=== PATIENT | male | born 1950 | race Caucasian/White ===

== ENCOUNTER 2016-04-14 01:59 | Observation (INO) | payer OTHER ==
[~2016-04-14] VITALS: Ht 177.8 cm; Wt 102.5 kg
[~2016-04-14 01:59] MED LIST: ADULT LOW DOSE81 M1 PO; ADVAIR HFA120 INHALA IH; ALBUTEROL SULF8.5 GM IH; ALKA-SELTZER O1 EACH PO; ALTACE10 MG PO; ALTACE5 MG PO; ASPIRIN EC325 MG PO; ASPIRIN81 M1 PO; ASPIRIN81 M2 PO; ATORVASTATIN CA10 MG PO; ATORVASTATIN CA40 MG PO; AVAPRO150 MG PO; AVAPRO300 MG PO; Aspirin E.C. PO; COLACE100 MG PO; ENALAPRIL MALEA20 MG PO; FUROSEMIDE40 MG PO; GLUCOPHAGE500 MG PO; HYDROCHLOROTHIA25 MG PO; HYDROCODON-ACE1 EAC7 PO; IRBESARTAN300 MG PO; LIPITOR10 MG PO; LIPITOR40 MG PO; LISINOPRIL5 MG PO; LO-DOSE ASPIRIN81 M2 PO; LOPRESSOR12.5 MG PO; Levaquin PO; METFORMIN HCL1000 MG PO; METFORMIN HCL500 MG PO; METOPROLOL TART50 MG PO; MILK OF MAGN PO; MONTELUKAST SOD10 MG PO; PLAVIX75 MG PO; PROTONIX40 MG PO; RAMIPRIL10 MG PO; RANITIDINE HCL150 M1 PO; SPIRONOLACTONE25 MG PO; TOPROL XL25 MG PO; TOPROL XL50 MG PO; VENTOLIN HFA18 GM IH; XANAX0.5 MG PO; ZANTAC300 MG PO; [UNRECOGNIZED DRUG - OTHER] PO
[2016-04-14 02:21] LABS: HEMATOCRIT 38.7 % (38.0-50.0); MCH 33.3 PG (29.0-34.0); MCHC 36.2 G/DL (30.0-36.0); MCV 91.9 FL (86-99); MEAN PLAT.VOLUME 9.1 uM^3 (9.0-12.4); PLATELET COUNT 364 K/uL (156-360); RBC DIS.WIDTH-CV 12.8 % (11.8-14.6); RBC DIS.WIDTH-SD 40.9 % (39-53); RED BLOOD COUNT 4.21 M/uL (4.00-5.50); WHITE BLOOD COUNT 11.4 K/uL (4.1-10.2)
[2016-04-14 02:29] LABS: CHLORIDE 105 mEq/L (99-109); SODIUM 137 mEq/L (136-147)
[2016-04-14 02:31] LABS: GLUCOSE 159 mg/dL (70-99)
[2016-04-14 02:32] LABS: ANION GAP 12 MEQ/L (2-14)
[2016-04-14 02:35] LABS: GFR ESTIMATE (CALCULATED) > 59 mL/min/
[2016-04-14 02:36] LABS: UREA NITROGEN (BUN) 13 mg/dL (9-23)
[2016-04-14 02:41] LABS: TROP-I INTERPRETATION NEGATIVE; TROPONIN-I 0.02 ng/mL (0.0-0.30)
[2016-04-14 07:31] VITALS: BP 104/78
[2016-04-14 08:00] VITALS: BP 111/65
[2016-04-14 09:10] LABS: Estimated Average Glucose 146 mg/dL (70-123); HEMOGLOBIN A1c (GLYCOHEMOGLOB) 6.7 % HGB (Below 5.7)
[2016-04-14 09:25] LABS: ALKALINE PHOSPHATASE 86 IU/L (3-129); ANION GAP 8 MEQ/L (2-14); CHLORIDE 103 MEQ/L (99-109); GFR ESTIMATE (CALCULATED) > 59 mL/min/; GLUCOSE 122 mg/dL (70-99); POTASSIUM 4.2 MEQ/L (3.7-5.4); SAMPLE HEMOLYSIS CHECK 0; SAMPLE ICTERIC CHECK 0; SAMPLE LIPEMIA CHECK 0; SODIUM 139 MEQ/L (136-147); TOTAL BILIRUBIN 0.6 MG/DL (0.0-1.0); UREA NITROGEN (BUN) 12 mg/dL (9-23)
[2016-04-14 09:34] LABS: TROP-I INTERPRETATION NEGATIVE; TROPONIN-I 0.02 ng/mL (0.0-0.30)
[2016-04-14 09:35] LABS: HEMATOCRIT 39.7 % (38.0-50.0); MCH 31.2 PG (29.0-34.0); MCV 91.7 FL (86-99); PLATELET COUNT 327 K/uL (156-360); RBC DIS.WIDTH-CV 13.1 % (11.8-14.6); RBC DIS.WIDTH-SD 43.2 % (39-53); RED BLOOD COUNT 4.33 M/uL (4.00-5.50)
[2016-04-14] MEDS ORDERED: AUGMENTIN875 MG PO (11:30)
[2016-04-14] MEDS ORDERED: TESSALON200 MG PO (11:30)
[2016-04-14] MEDS ORDERED: XANAX0.5 MG PO (11:31)
[2016-04-14] MEDS ORDERED: SINGULAIR10 MG PO (11:31)
[2016-04-14] MEDS ORDERED: ADVAIR HFA120 INHALA IH (11:31)
[2016-04-14 12:12] VITALS: BP 125/76
[2016-04-14] MEDS ORDERED: NITROSTAT0.4 MG SL (14:45)
[2016-04-14] MEDS ORDERED: NICOTINE PATCH1 EAC2 TD (14:45)
[2016-04-14 14:57] VITALS: BP 110/65
[2016-04-14 15:14] LABS: TROP-I INTERPRETATION NEGATIVE; TROPONIN-I 0.01 ng/mL (0.0-0.30)
[2016-04-14 16:18] LABS: POINT-OF-CARE METER ID UU14162513
== END 2016-04-14 17:53 | disposition home or self-care (01) ==
LOC: EME → EDBD 01:59 → EDOF 03:05 → 5WEST 07:02
PROVIDERS: Hospitalist; Internal Medicine
DX: R07.89 Other chest pain (principal); I10 Essential (primary) hypertension; E11.9 Type 2 diabetes mellitus without complications; I25.10 Atherosclerotic heart disease of native coronary artery without angina pectoris; Z86.73 Personal history of transient ischemic attack (TIA), and cerebral infarction without residual deficits; E78.5 Hyperlipidemia, unspecified; I48.0 Paroxysmal atrial fibrillation; F17.220 Nicotine dependence, chewing tobacco, uncomplicated; E66.9 Obesity, unspecified; Z68.32 Body mass index [BMI] 32.0-32.9, adult; Z79.02 Long term (current) use of antithrombotics/antiplatelets; Z79.82 Long term (current) use of aspirin; Z79.84 Long term (current) use of oral hypoglycemic drugs
CPT/HCPCS: 71020; 80048; 80053; 82948; 83036; 84484; 85027; 93005; 99281; 99285; G0378; J1644; J1815

== ENCOUNTER 2017-02-14 01:01 | Emergency (ER) | payer OTHER ==
[~2017-02-14] VITALS: Ht 180.3 cm; Wt 111.0 kg
[~2017-02-14 01:01] MED LIST changes: +AUGMENTIN875 MG PO; +NICOTINE PATCH1 EAC2 TD; +NITROSTAT0.4 MG SL; +SINGULAIR10 MG PO; +TESSALON200 MG PO
[2017-02-14 01:59] LABS: HEMATOCRIT 40.6 % (38.0-50.0); MCH 30.8 PG (29.0-34.0); MCHC 33.3 G/DL (30.0-36.0); MCV 92.7 FL (86-99); MEAN PLAT.VOLUME 10.1 uM^3 (9.0-12.4); PLATELET COUNT 360 K/uL (156-360); RBC DIS.WIDTH-CV 12.5 % (11.8-14.6); RBC DIS.WIDTH-SD 42.5 % (39-53); RED BLOOD COUNT 4.38 M/uL (4.00-5.50); WHITE BLOOD COUNT 12.6 K/uL (4.1-10.2)
[2017-02-14 02:05] LABS: CHLORIDE 101 mEq/L (99-109); POTASSIUM 4.3 mEq/L (3.7-5.4); SODIUM 137 mEq/L (136-147)
[2017-02-14 02:07] LABS: GLUCOSE 173 mg/dL (70-99)
[2017-02-14 02:08] LABS: ANION GAP 8 MEQ/L (2-14)
[2017-02-14 02:11] LABS: GFR ESTIMATE (CALCULATED) > 59 mL/min/
[2017-02-14 02:12] LABS: UREA NITROGEN (BUN) 15 mg/dL (9-23)
[2017-02-14 03:05] LABS: TROP-I INTERPRETATION NEGATIVE; TROPONIN-I 0.01 ng/mL (0.0-0.30)
[2017-02-14 05:08] VITALS: BP 129/64
== END 2017-02-14 05:09 | disposition home or self-care (01) ==
LOC: EME 01:01
DX: R05 Cough (principal); I11.0 Hypertensive heart disease with heart failure; I50.9 Heart failure, unspecified; J44.9 Chronic obstructive pulmonary disease, unspecified; E11.9 Type 2 diabetes mellitus without complications; Z79.84 Long term (current) use of oral hypoglycemic drugs; I25.2 Old myocardial infarction; Z86.73 Personal history of transient ischemic attack (TIA), and cerebral infarction without residual deficits; Z79.82 Long term (current) use of aspirin
CPT/HCPCS: 71020; 80048; 83880; 84484; 85027; 93005; 99281; 99283

== ENCOUNTER 2017-03-17 00:13 | Emergency (ER) | payer OTHER ==
[~2017-03-17] VITALS: Ht 177.8 cm; Wt 111.0 kg
[2017-03-17 00:33] LABS: HEMOGLOBIN 13.6 G/DL (12.5-16.6); MCH 30.8 PG (29.0-34.0); MCHC 33.2 G/DL (30.0-36.0); MCV 92.8 FL (86-99); PLATELET COUNT 311 K/uL (156-360); RBC DIS.WIDTH-CV 12.6 % (11.8-14.6); RBC DIS.WIDTH-SD 42.8 % (39-53); RED BLOOD COUNT 4.42 M/uL (4.00-5.50); WHITE BLOOD COUNT 11.1 K/uL (4.1-10.2)
[2017-03-17 00:49] LABS: CHLORIDE 98 mEq/L (99-109); POTASSIUM 4.6 mEq/L (3.7-5.4); SODIUM 132 mEq/L (136-147)
[2017-03-17 00:51] LABS: GLUCOSE 234 mg/dL (70-99)
[2017-03-17 00:55] LABS: CREATININE 1.1 mg/dL (0.6-1.3); GFR ESTIMATE (CALCULATED) > 59 mL/min/ (58.99-99999); UREA NITROGEN (BUN) 18 mg/dL (9-23)
[2017-03-17 00:57] LABS: TROP-I INTERPRETATION NEGATIVE; TROPONIN-I < 0.01 ng/mL (0.0-0.30)
[2017-03-17 01:28] LABS: PTT 29.3 SEC (25-37)
[2017-03-17] MEDS ORDERED: PROVENTIL HFA6.7 GM IH (02:24)
[2017-03-17] MEDS ORDERED: PREDNISONE50 MG PO (02:24)
[2017-03-17] MEDS ORDERED: ROBITUSSIN100 MG/5 M PO (02:24)
[2017-03-17] MEDS ORDERED: LEVAQUIN750 MG PO (02:24)
[2017-03-17] MEDS ORDERED: ALDACTONE25 MG PO (02:29)
[2017-03-17 03:05] VITALS: BP 139/75
== END 2017-03-17 03:06 | disposition home or self-care (01) ==
LOC: EME 00:13
DX: J20.9 Acute bronchitis, unspecified (principal); J44.0 Chronic obstructive pulmonary disease with (acute) lower respiratory infection; I10 Essential (primary) hypertension; E11.9 Type 2 diabetes mellitus without complications; Z79.84 Long term (current) use of oral hypoglycemic drugs; Z79.82 Long term (current) use of aspirin; Z87.891 Personal history of nicotine dependence
CPT/HCPCS: 71020; 80048; 83880; 84484; 85027; 85610; 85730; 93005; 94640; 99281; 99284; J7512

== ENCOUNTER 2017-05-01 01:18 | Emergency (ER) | payer OTHER ==
[~2017-05-01] VITALS: Ht 180.3 cm; Wt 111.1 kg
[~2017-05-01 01:18] MED LIST changes: +ALDACTONE25 MG PO; +LEVAQUIN750 MG PO; +PREDNISONE50 MG PO; +PROVENTIL HFA6.7 GM IH; +ROBITUSSIN100 MG/5 M PO
[2017-05-01] MEDS ORDERED: BACTROBAN OINTM22 GM TP (02:05)
[2017-05-01] MEDS ORDERED: BACTRIM,SEPT1 TABLET PO (02:05)
[2017-05-01] MEDS ORDERED: NORCO 5/3251 TABLET PO (02:06)
[2017-05-01 02:17] VITALS: BP 163/99
== END 2017-05-01 02:18 | disposition home or self-care (01) ==
LOC: EME 01:18
DX: J34.0 Abscess, furuncle and carbuncle of nose (principal)
CPT/HCPCS: 99281; 99283